=== PATIENT | female | born 1970 | race Caucasian/White ===

== ENCOUNTER → 2016-04-27 | Outpatient (CLI) | payer OTHER ==
[~2016-04-27] MED LIST: AUGMENTIN 875875 MG PO; FLEXERIL10 MG PO; LAMICTAL PO; LAMICTAL100 MG PO; MOTRIN800 MG PO; REMERON PO; VALIUM PO; VALIUM10 MG; XANAX PO; XANAX XR1 MG PO; XANAX0.25 MG PO; XANAX1 MG PO
== END | disposition home or self-care (01) ==
LOC: RAD 11:39
DX: R06.02 Shortness of breath (principal); R05 Cough; R09.89 Other specified symptoms and signs involving the circulatory and respiratory systems

== ENCOUNTER 2017-05-31 08:01 | Emergency (ER) | payer OTHER ==
[~2017-05-31] VITALS: Ht 170.1 cm; Wt 77.1 kg
[2017-05-31] MEDS ORDERED: ATORVASTATIN CA20 M1 PO (08:08)
[2017-05-31] MEDS ORDERED: OMEPRAZOLE D/R20 MG PO (08:09)
[2017-05-31 08:45] LABS: BILIRUBIN NEGATIVE (NEGATIVE); BLOOD TRACE-INTACT (NEGATIVE); CLARITY CLEAR (CLEAR); COLOR YELLOW (YELLOW); GLUCOSE NEGATIVE (NEGATIVE); KETONE NEGATIVE (NEGATIVE); LEUKO ESTERASE 1+ (NEGATIVE); NITRITE POSITIVE (NEGATIVE); SPECIFIC GRAVITY <= 1.005 (1.005-1.030); UROBILINOGEN 0.2 E.U./dl (0.2-1.0)
[2017-05-31 08:49] LABS: BASO % 0.8 % (0.0-1.0); EOS # 0.1 10*3/uL (0.0-0.4); EOS % 1.4 % (1.0-4.0); HEMATOCRIT 42.9 % (37.0-47.0); HEMOGLOBIN 14.4 g/dl (12.0-16.0); LYMPH # 1.3 10*3/uL (1.3-4.4); MEAN CELL VOLUME 95.3 fl (81.0-99.0); MEAN CORPUSCULAR HGB CONC 33.6 g/dl (33.0-37.0); MEAN PLATELET VOLUME 8.9 fl (9.6-12.3); MONO # 0.5 10*3/uL (0.1-1.0); MONO % 9.7 % (3.0-9.0); NEUT # 3.1 10*3/uL (2.3-7.9); NEUT % 61.7 % (47.0-73.0); PLATELET COUNT AUTOMATED 170 10*3/uL (130-400); RED CELL DISTRI WIDTH 13.4 % (0-14.5)
[2017-05-31 08:53] LABS: BACTERIA 3+
[2017-05-31 08:58] LABS: ACT PARTIAL THROMBO TIME 27.2 SECONDS (20.8-31.5); INTERNATIONAL NORM RATIO 0.9 (2.0-3.5)
[2017-05-31 09:18] LABS: ALBUMIN 3.4 gm/dl (3.1-4.5); ALKALINE PHOSPHATASE 135 U/L (45-117); BUN 5 mg/dl (7-24); CHLORIDE 105 mmol/L (98-107); CREATININE 0.79 mg/dL (0.55-1.02); POTASSIUM 4.1 mmol/L (3.5-5.1); SGOT/AST 47 IU/L (3-35); SGPT/ALT 47 U/L (12-78); SODIUM 138 mmol/L (136-145); TOTAL PROTEIN 7.4 gm/dL (6.4-8.2)
[2017-05-31] MEDS ORDERED: CYCLOBENZAPRINE5 M3 PO (10:14)
== END 2017-05-31 10:36 | disposition home or self-care (01) ==
LOC: ED 08:01
PROVIDERS: Emergency Medicine
DX: M54.5 Low back pain (principal); F17.200 Nicotine dependence, unspecified, uncomplicated; Z98.51 Tubal ligation status; Z79.899 Other long term (current) drug therapy

== ENCOUNTER 2017-06-13 19:46 | Emergency (ER) | payer OTHER ==
[~2017-06-13] VITALS: Ht 170.1 cm; Wt 66.2 kg
[~2017-06-13 19:46] MED LIST changes: +ATORVASTATIN CA20 M1 PO; +CYCLOBENZAPRINE5 M3 PO; +OMEPRAZOLE D/R20 MG PO
[2017-06-13] MEDS ORDERED: CYCLOBENZAPRINE5 M3 PO (21:42)
== END 2017-06-13 21:52 | disposition home or self-care (01) ==
LOC: ED 19:46
DX: M54.5 Low back pain (principal); F17.200 Nicotine dependence, unspecified, uncomplicated; Z98.51 Tubal ligation status; Z79.899 Other long term (current) drug therapy; W19.XXXA Unspecified fall, initial encounter; Y93.89 Activity, other specified; Y92.89 Other specified places as the place of occurrence of the external cause; Y99.9 Unspecified external cause status

== ENCOUNTER → 2017-06-27 | Outpatient (CLI) | payer OTHER | END | disposition home or self-care (01) | LOC: US 05-28 10:00 | DX: K76.0 Fatty (change of) liver, not elsewhere classified (principal) ==

== ENCOUNTER → 2017-11-07 | Outpatient (CLI) | payer OTHER ==
[2017-11-07 09:28] LABS: BASO # 0.1 10*3/uL (0.0-0.1); BASO % 0.7 % (0.0-1.0); EOS # 0.1 10*3/uL (0.0-0.4); EOS % 1.1 % (1.0-4.0); HEMATOCRIT 47.5 % (37.0-47.0); HEMOGLOBIN 16.1 g/dl (12.0-16.0); LYMPH % 22.5 % (27.0-41.0); MEAN CELL VOLUME 99.4 fl (81.0-99.0); MEAN CORPUSCULAR HGB 33.7 pg (27.0-31.0); MEAN CORPUSCULAR HGB CONC 33.9 g/dl (33.0-37.0); MEAN PLATELET VOLUME 9.5 fl (9.6-12.3); MONO # 0.8 10*3/uL (0.1-1.0); MONO % 9.3 % (3.0-9.0); NEUT # 5.8 10*3/uL (2.3-7.9); NEUT % 66.1 % (47.0-73.0); PLATELET COUNT AUTOMATED 180 10*3/uL (130-400); RED BLOOD COUNT 4.78 10*6/uL (4.10-5.10); WHITE BLOOD COUNT 8.8 10*3/uL (4.8-10.8)
== END | disposition home or self-care (01) ==
LOC: LAB 08:25
PROVIDERS: Physician Assistant
DX: Z51.81 Encounter for therapeutic drug level monitoring (principal); Z79.899 Other long term (current) drug therapy

== ENCOUNTER 2017-12-26 11:13 | Emergency (ER) | payer OTHER ==
[~2017-12-26] VITALS: Ht 167.6 cm; Wt 61.2 kg
[2017-12-26 11:50] LABS: BASO # 0.1 10*3/uL (0.0-0.1); BASO % 0.7 % (0.0-1.0); EOS # 0.3 10*3/uL (0.0-0.4); EOS % 2.2 % (1.0-4.0); HEMATOCRIT 47.3 % (37.0-47.0); HEMOGLOBIN 15.9 g/dl (12.0-16.0); LYMPH # 2.4 10*3/uL (1.3-4.4); LYMPH % 18.4 % (27.0-41.0); MEAN CELL VOLUME 101.3 fl (81.0-99.0); MEAN CORPUSCULAR HGB CONC 33.6 g/dl (33.0-37.0); MEAN PLATELET VOLUME 9.8 fl (9.6-12.3); MONO # 1.1 10*3/uL (0.1-1.0); MONO % 8.8 % (3.0-9.0); NEUT # 9.1 10*3/uL (2.3-7.9); NEUT % 69.5 % (47.0-73.0); PLATELET COUNT AUTOMATED 557 10*3/uL (130-400); RED BLOOD COUNT 4.67 10*6/uL (4.10-5.10); RED CELL DISTRI WIDTH 13.5 % (0-14.5)
[2017-12-26 12:17] LABS: ALBUMIN 2.9 gm/dl (3.1-4.5); ALKALINE PHOSPHATASE 166 U/L (45-117); BUN 2 mg/dl (7-24); CHLORIDE 104 mmol/L (98-107); CREATININE 0.69 mg/dL (0.55-1.02); LIPASE 166 U/L (73-393); POTASSIUM 4.5 mmol/L (3.5-5.1); SGOT/AST 46 IU/L (3-35); SGPT/ALT 31 U/L (12-78); SODIUM 138 mmol/L (136-145)
[2017-12-26 12:55] LABS: BILIRUBIN NEGATIVE (NEGATIVE); BLOOD NEGATIVE (NEGATIVE); CLARITY SL CLOUDY (CLEAR); COLOR YELLOW (YELLOW); GLUCOSE NEGATIVE (NEGATIVE); KETONE NEGATIVE (NEGATIVE); LEUKO ESTERASE 2+ (NEGATIVE); NITRITE POSITIVE (NEGATIVE); PH 7.5 (5.0-9.0); SPECIFIC GRAVITY <= 1.005 (1.005-1.030); UROBILINOGEN 0.2 E.U./dl (0.2-1.0)
[2017-12-26 13:14] LABS: WBC 21-30 wbc/hpf (0-5)
[2017-12-26 13:15] LABS: BACTERIA 3+
[2017-12-26] MEDS ORDERED: PYRIDIUM200 M1 PO (13:31)
[2017-12-26] MEDS ORDERED: ZOFRAN4 MG PO (13:31)
[2017-12-26] MEDS ORDERED: MACROBID100 M1 PO (13:31)
== END 2017-12-26 13:34 | disposition home or self-care (01) ==
LOC: ED 11:13
PROVIDERS: Nurse Practitioner Family
DX: N39.0 Urinary tract infection, site not specified (principal); R03.0 Elevated blood-pressure reading, without diagnosis of hypertension; F17.200 Nicotine dependence, unspecified, uncomplicated; Z79.899 Other long term (current) drug therapy; Z98.51 Tubal ligation status

== ENCOUNTER → 2018-11-30 | Outpatient (CLI) | payer OTHER ==
[~2018-11-30] MED LIST changes: +MACROBID100 M1 PO; +PYRIDIUM200 M1 PO; +ZOFRAN4 MG PO
== END | disposition home or self-care (01) ==
LOC: RAD 08:51
DX: M47.816 Spondylosis without myelopathy or radiculopathy, lumbar region (principal)

== ENCOUNTER → 2020-03-07 | Outpatient (CLI) | payer OTHER | END | disposition home or self-care (01) | LOC: COVID19 13:35 | PROVIDERS: ATTEND Physician Assistant | DX: Z20.828 Contact with and (suspected) exposure to other viral communicable diseases (principal) ==

== ENCOUNTER 2020-08-21 06:55 | Emergency (ER) | payer OTHER ==
[~2020-08-21] VITALS: Ht 167.6 cm; Wt 63.5 kg
[2020-08-21 09:32] LABS: BASO # 0.1 10*3/uL (0.0-0.1); BASO % 0.9 % (0.0-1.0); EOS # 0.1 10*3/uL (0.0-0.4); EOS % 2.1 % (1.0-4.0); HEMATOCRIT 48.3 % (37.0-47.0); LYMPH # 3.6 10*3/uL (1.3-4.4); LYMPH % 53.3 % (27.0-41.0); MEAN CELL VOLUME 94.2 fl (81.0-99.0); MEAN CORPUSCULAR HGB 32.2 pg (27.0-31.0); MEAN CORPUSCULAR HGB CONC 34.2 g/dl (33.0-37.0); MEAN PLATELET VOLUME 8.7 fl (9.6-12.3); MONO # 0.6 10*3/uL (0.1-1.0); MONO % 8.8 % (3.0-9.0); NEUT # 2.3 10*3/uL (2.3-7.9); NEUT % 34.5 % (47.0-73.0); PLATELET COUNT AUTOMATED 281 10*3/uL (130-400); RED BLOOD COUNT 5.13 10*6/uL (4.10-5.10); RED CELL DISTRI WIDTH 12.6 % (0-14.5); WHITE BLOOD COUNT 6.7 10*3/uL (4.8-10.8)
[2020-08-21 09:43] LABS: ACT PARTIAL THROMBO TIME 28.9 SECONDS (20.0-32.1)
[2020-08-21 09:46] LABS: ALBUMIN 3.5 gm/dl (3.1-4.5); ALKALINE PHOSPHATASE 129 U/L (45-117); BUN 6 mg/dl (7-24); CHLORIDE 108 mmol/L (98-107); CREATININE 0.71 mg/dL (0.55-1.02); POTASSIUM 3.8 mmol/L (3.5-5.1); SGOT/AST 21 IU/L (3-35); SGPT/ALT 26 U/L (12-78); SODIUM 139 mmol/L (136-145); TOTAL PROTEIN 7.9 gm/dL (6.4-8.2)
[2020-08-21] MEDS ORDERED: PREDNISONE10 MG PO (10:07)
[2020-08-21] MEDS ORDERED: DOXYCYCLINE100 M3 PO (10:07)
== END 2020-08-21 10:23 | disposition home or self-care (01) ==
LOC: ED 06:55
PROVIDERS: Family Medicine
DX: J40 Bronchitis, not specified as acute or chronic (principal); Z88.8 Allergy status to other drugs, medicaments and biological substances; Z79.899 Other long term (current) drug therapy; Z98.51 Tubal ligation status

== ENCOUNTER 2020-10-23 18:28 | Emergency (ER) | payer OTHER ==
[~2020-10-23 18:28] MED LIST changes: +DOXYCYCLINE100 M3 PO; +PREDNISONE10 MG PO
== END 2020-10-23 18:57 | disposition left against medical advice (07) ==
LOC: ED 18:28
DX: R10.9 Unspecified abdominal pain (principal); Z53.21 Procedure and treatment not carried out due to patient leaving prior to being seen by health care provider

== ENCOUNTER 2020-10-29 01:46 | Emergency (ER) | payer OTHER ==
[~2020-10-29 01:46] MED LIST changes: +CIPRO500 MG PO
== END 2020-10-29 02:30 | disposition left against medical advice (07) ==
LOC: ED 01:46
DX: R07.81 Pleurodynia (principal); Z53.21 Procedure and treatment not carried out due to patient leaving prior to being seen by health care provider

== ENCOUNTER 2020-11-13 12:48 | Inpatient (IN) | payer OTHER ==
[~2020-11-13] VITALS: Ht 167.6 cm; Wt 68.9 kg
[2020-11-13 12:57] VITALS: BP 161/86
[2020-11-13 13:05] LABS: BASO % 0.5 % (0.0-1.0); EOS # 0.1 10*3/uL (0.0-0.4); EOS % 0.9 % (1.0-4.0); HEMATOCRIT 47.4 % (37.0-47.0); LYMPH # 3.7 10*3/uL (1.3-4.4); LYMPH % 55.6 % (27.0-41.0); MEAN CELL VOLUME 93.1 fl (81.0-99.0); MEAN CORPUSCULAR HGB 31.6 pg (27.0-31.0); MEAN PLATELET VOLUME 9.3 fl (9.6-12.3); MONO # 0.6 10*3/uL (0.1-1.0); MONO % 9.2 % (3.0-9.0); NEUT # 2.2 10*3/uL (2.3-7.9); NEUT % 33.5 % (47.0-73.0); PLATELET COUNT AUTOMATED 166 10*3/uL (130-400); RED BLOOD COUNT 5.09 10*6/uL (4.10-5.10); WHITE BLOOD COUNT 6.6 10*3/uL (4.8-10.8)
[2020-11-13 13:23] LABS: LIPASE 168 U/L (73-393)
[2020-11-13 13:24] LABS: ALBUMIN 3.6 gm/dl (3.1-4.5); ALKALINE PHOSPHATASE 115 U/L (45-117); BUN 5 mg/dl (7-24); CHLORIDE 101 mmol/L (98-107); CREATININE 0.61 mg/dL (0.55-1.02); POTASSIUM 3.9 mmol/L (3.5-5.1); SGOT/AST 110 IU/L (3-35); SGPT/ALT 71 U/L (12-78); SODIUM 131 mmol/L (136-145); TOTAL PROTEIN 7.6 gm/dL (6.4-8.2)
[2020-11-13 13:31] LABS: TROPONIN I < 0.015 ng/ml (<0.045)
[2020-11-13 13:35] VITALS: BP 118/82
[2020-11-13 16:15] VITALS: BP 129/82
[2020-11-13 17:40] VITALS: BP 145/60
[2020-11-13] MEDS ORDERED: HYDROCORTISONE30 GM T (17:53)
[2020-11-13] MEDS ORDERED: METHYLPRED-DP4 MG PO (17:54)
[2020-11-13 18:40] VITALS: BP 145/60
[2020-11-13 20:00] VITALS: BP 128/61
[2020-11-14 00:20] VITALS: BP 119/93
[2020-11-14 06:16] LABS: ALBUMIN 2.9 gm/dl (3.1-4.5); ALKALINE PHOSPHATASE 107 U/L (45-117); BUN 6 mg/dl (7-24); CHLORIDE 108 mmol/L (98-107); CHOLESTEROL 174 mg/dL (<200); LDL CHOLESTEROL 88 mg/dL (9-159); POTASSIUM 3.9 mmol/L (3.5-5.1); SGOT/AST 64 IU/L (3-35); SGPT/ALT 53 U/L (12-78); SODIUM 136 mmol/L (136-145); TOTAL PROTEIN 6.1 gm/dL (6.4-8.2); TRIGLYCERIDES 100 mg/dl (<150)
[2020-11-14 06:25] LABS: BASO % 0.6 % (0.0-1.0); EOS # 0.1 10*3/uL (0.0-0.4); EOS % 1.1 % (1.0-4.0); HEMATOCRIT 42.6 % (37.0-47.0); LYMPH # 2.5 10*3/uL (1.3-4.4); LYMPH % 46.8 % (27.0-41.0); MEAN CELL VOLUME 94.9 fl (81.0-99.0); MEAN CORPUSCULAR HGB 32.1 pg (27.0-31.0); MEAN CORPUSCULAR HGB CONC 33.8 g/dl (33.0-37.0); MEAN PLATELET VOLUME 10.1 fl (9.6-12.3); MONO # 0.4 10*3/uL (0.1-1.0); MONO % 8.2 % (3.0-9.0); NEUT # 2.3 10*3/uL (2.3-7.9); NEUT % 43.1 % (47.0-73.0); PLATELET COUNT AUTOMATED 139 10*3/uL (130-400); RED BLOOD COUNT 4.49 10*6/uL (4.10-5.10); RED CELL DISTRI WIDTH 13.2 % (0-14.5); WHITE BLOOD COUNT 5.4 10*3/uL (4.8-10.8)
[2020-11-14 07:02] LABS: INTERNATIONAL NORM RATIO 1.1 (2.0-3.5)
[2020-11-14 08:00] VITALS: BP 148/64
[2020-11-14 09:20] LABS: VITAMIN D, 25-HYDROXY 24.3 ng/mL (30-100)
[2020-11-14 12:00] VITALS: BP 125/80
[2020-11-14 16:00] VITALS: BP 120/72
[2020-11-14 20:00] VITALS: BP 128/67
[2020-11-15] VITALS: BP 133/102
[2020-11-15 05:51] LABS: BUN 4 mg/dl (7-24); CHLORIDE 109 mmol/L (98-107); CREATININE 0.56 mg/dL (0.55-1.02); POTASSIUM 3.6 mmol/L (3.5-5.1); SODIUM 139 mmol/L (136-145)
[2020-11-15 06:16] LABS: BASO % 0.4 % (0.0-1.0); EOS # 0.1 10*3/uL (0.0-0.4); EOS % 2.4 % (1.0-4.0); HEMATOCRIT 44.2 % (37.0-47.0); LYMPH # 2.5 10*3/uL (1.3-4.4); LYMPH % 50.6 % (27.0-41.0); MEAN CELL VOLUME 94.4 fl (81.0-99.0); MEAN CORPUSCULAR HGB 31.6 pg (27.0-31.0); MEAN CORPUSCULAR HGB CONC 33.5 g/dl (33.0-37.0); MEAN PLATELET VOLUME 10.3 fl (9.6-12.3); MONO # 0.4 10*3/uL (0.1-1.0); MONO % 8.3 % (3.0-9.0); NEUT # 1.9 10*3/uL (2.3-7.9); NEUT % 38.1 % (47.0-73.0); PLATELET COUNT AUTOMATED 135 10*3/uL (130-400); RED BLOOD COUNT 4.68 10*6/uL (4.10-5.10); RED CELL DISTRI WIDTH 12.8 % (0-14.5); WHITE BLOOD COUNT 4.9 10*3/uL (4.8-10.8)
[2020-11-15 08:00] VITALS: BP 154/88
[2020-11-15 11:20] VITALS: BP 117/70
[2020-11-15 11:32] VITALS: BP 116/71
[2020-11-15 11:46] VITALS: BP 126/63
[2020-11-15 12:11] VITALS: BP 117/70
== END 2020-11-15 13:20 | disposition left against medical advice (07) | DRG 241 ==
LOC: ED 12:48 → EDHOLD 16:07 → 4E 16:07
PROVIDERS: Emergency Medicine; Social Worker Clinical; Student in an Organized Health Care Education/Training Program; ADMIT Student in an Organized Health Care Education/Training Program; ATTEND Student in an Organized Health Care Education/Training Program
PROC: 09JJ8ZZ Inspection of Left Ear, Via Natural or Artificial Opening Endoscopic (ICD-10-PCS; 2020-11-14)
PROC: 09JH8ZZ Inspection of Right Ear, Via Natural or Artificial Opening Endoscopic (ICD-10-PCS; 2020-11-14)
PROC: 0DB78ZX Excision of Stomach, Pylorus, Via Natural or Artificial Opening Endoscopic, Diagnostic (ICD-10-PCS; principal; 2020-11-15)
DX: K29.20 Alcoholic gastritis without bleeding (principal); F10.139 Alcohol abuse with withdrawal, unspecified; D70.9 Neutropenia, unspecified; E87.1 Hypo-osmolality and hyponatremia; D75.1 Secondary polycythemia; F41.0 Panic disorder [episodic paroxysmal anxiety]; Z53.29 Procedure and treatment not carried out because of patient's decision for other reasons; K29.80 Duodenitis without bleeding; E83.41 Hypermagnesemia; F32.9 Major depressive disorder, single episode, unspecified; F41.9 Anxiety disorder, unspecified; R53.1 Weakness; R20.0 Anesthesia of skin; J44.9 Chronic obstructive pulmonary disease, unspecified; F17.210 Nicotine dependence, cigarettes, uncomplicated; Y90.8 Blood alcohol level of 240 mg/100 ml or more; S00.411A Abrasion of right ear, initial encounter; S00.412A Abrasion of left ear, initial encounter; X58.XXXA Exposure to other specified factors, initial encounter; Y93.89 Activity, other specified; Y92.89 Other specified places as the place of occurrence of the external cause; Y99.8 Other external cause status; Z71.6 Tobacco abuse counseling; Z88.1 Allergy status to other antibiotic agents; Z98.51 Tubal ligation status; Z80.42 Family history of malignant neoplasm of prostate; Z82.3 Family history of stroke; Z83.2 Family history of diseases of the blood and blood-forming organs and certain disorders involving the immune mechanism; Z86.711 Personal history of pulmonary embolism; Z86.73 Personal history of transient ischemic attack (TIA), and cerebral infarction without residual deficits; Z79.899 Other long term (current) drug therapy; Z79.52 Long term (current) use of systemic steroids

== ENCOUNTER 2020-12-22 | Inpatient (IN) | payer OTHER ==
[~2020-12-22] VITALS: Ht 167.6 cm; Wt 65.5 kg
[~2020-12-22] MED LIST changes: +HYDROCORTISONE30 GM T; +METHYLPRED-DP4 MG PO
[2020-12-22 00:03] VITALS: BP 136/79
[2020-12-22 00:14] LABS: BASO % 0.7 % (0.0-1.0); EOS % 0.6 % (1.0-4.0); HEMATOCRIT 43.9 % (37.0-47.0); LYMPH % 19.4 % (27.0-41.0); MEAN CELL VOLUME 92.8 fl (81.0-99.0); MEAN CORPUSCULAR HGB 32.6 pg (27.0-31.0); MEAN CORPUSCULAR HGB CONC 35.1 g/dl (33.0-37.0); MEAN PLATELET VOLUME 9.6 fl (9.6-12.3); MONO # 0.7 10*3/uL (0.1-1.0); MONO % 13.5 % (3.0-9.0); NEUT # 3.5 10*3/uL (2.3-7.9); NEUT % 65.4 % (47.0-73.0); PLATELET COUNT AUTOMATED 142 10*3/uL (130-400); RED BLOOD COUNT 4.73 10*6/uL (4.10-5.10); RED CELL DISTRI WIDTH 13.2 % (0-14.5); WHITE BLOOD COUNT 5.4 10*3/uL (4.8-10.8)
[2020-12-22 00:31] LABS: ALBUMIN 3.1 gm/dl (3.1-4.5); ALKALINE PHOSPHATASE 250 U/L (45-117); BUN 2 mg/dl (7-24); CHLORIDE 91 mmol/L (98-107); CREATININE 0.55 mg/dL (0.55-1.02); POTASSIUM 3.7 mmol/L (3.5-5.1); SGOT/AST 306 IU/L (3-35); SGPT/ALT 170 U/L (12-78); SODIUM 128 mmol/L (136-145); TOTAL PROTEIN 7.4 gm/dL (6.4-8.2)
[2020-12-22 00:32] LABS: TROPONIN I < 0.015 ng/ml (<0.045)
[2020-12-22 03:17] LABS: BILIRUBIN Negative (Negative); BLOOD Negative (Negative); CLARITY Clear (Clear); COLOR Yellow (Yellow); GLUCOSE Negative (Negative); KETONE Negative (Negative); LEUKO ESTERASE 1+ (Negative); NITRITE Negative (Negative); SPECIFIC GRAVITY <= 1.005 (1.001-1.030); UROBILINOGEN 0.2 E.U./dl (0.0-1.0)
[2020-12-22 03:27] LABS: BACTERIA 2+; WBC 21-30 wbc/hpf (0-5)
[2020-12-22 05:39] LABS: URINE AMPHETAMINES > 1000 (1000ng/ml); URINE BARBITURATES < 200 (200ng/ml); URINE BENZODIAZEPINES < 200 (200ng/ml); URINE CANNABINOIDS (THC) < 50 (50ng/ml); URINE COCAINE < 300 (300ng/ml); URINE METHADONE < 300 (300ng/ml); URINE OPIATES < 300 (300ng/ml)
[2020-12-22 06:00] LABS: URINE PHENCYCLIDINE < 25 (25ng/ml)
[2020-12-22 06:15] LABS: BASO % 0.7 % (0.0-1.0); EOS % 0.7 % (1.0-4.0); HEMATOCRIT 46.3 % (37.0-47.0); LYMPH # 1.3 10*3/uL (1.3-4.4); MEAN CELL VOLUME 93.3 fl (81.0-99.0); MEAN CORPUSCULAR HGB 32.9 pg (27.0-31.0); MEAN CORPUSCULAR HGB CONC 35.2 g/dl (33.0-37.0); MEAN PLATELET VOLUME 9.7 fl (9.6-12.3); MONO # 0.7 10*3/uL (0.1-1.0); MONO % 11.7 % (3.0-9.0); NEUT % 65.7 % (47.0-73.0); PLATELET COUNT AUTOMATED 161 10*3/uL (130-400); RED BLOOD COUNT 4.96 10*6/uL (4.10-5.10); RED CELL DISTRI WIDTH 13.3 % (0-14.5); WHITE BLOOD COUNT 6.1 10*3/uL (4.8-10.8)
[2020-12-22 06:31] LABS: ALBUMIN 3.2 gm/dl (3.1-4.5); BUN 2 mg/dl (7-24); CHLORIDE 103 mmol/L (98-107); POTASSIUM 3.8 mmol/L (3.5-5.1); SGPT/ALT 171 U/L (12-78); SODIUM 139 mmol/L (136-145)
[2020-12-22 06:38] VITALS: BP 134/78
[2020-12-22 06:43] LABS: ALKALINE PHOSPHATASE 260 U/L (45-117); CREATININE 0.65 mg/dL (0.55-1.02); SGOT/AST 305 IU/L (3-35)
[2020-12-22 07:34] LABS: ACT PARTIAL THROMBO TIME 27.6 SECONDS (20.0-32.1)
[2020-12-22 08:44] VITALS: BP 120/64
[2020-12-22 16:25] VITALS: BP 115/70
[2020-12-22 16:58] VITALS: BP 119/79
[2020-12-22 20:00] VITALS: BP 105/68
[2020-12-23 00:03] VITALS: BP 109/74; BP 109/747
[2020-12-23 06:18] LABS: BASO # 0.1 10*3/uL (0.0-0.1); EOS # 0.2 10*3/uL (0.0-0.4); EOS % 2.9 % (1.0-4.0); HEMATOCRIT 42.6 % (37.0-47.0); LYMPH # 1.6 10*3/uL (1.3-4.4); LYMPH % 30.2 % (27.0-41.0); MEAN CORPUSCULAR HGB 32.4 pg (27.0-31.0); MEAN CORPUSCULAR HGB CONC 33.3 g/dl (33.0-37.0); MEAN PLATELET VOLUME 10.3 fl (9.6-12.3); MONO # 0.6 10*3/uL (0.1-1.0); MONO % 10.6 % (3.0-9.0); NEUT # 2.9 10*3/uL (2.3-7.9); NEUT % 55.1 % (47.0-73.0); PLATELET COUNT AUTOMATED 137 10*3/uL (130-400); RED BLOOD COUNT 4.38 10*6/uL (4.10-5.10); RED CELL DISTRI WIDTH 13.7 % (0-14.5); WHITE BLOOD COUNT 5.3 10*3/uL (4.8-10.8)
[2020-12-23 06:27] LABS: MEAN CELL VOLUME 97.3 fl (81.0-99.0)
[2020-12-23 06:51] LABS: ALBUMIN 2.4 gm/dl (3.1-4.5); ALKALINE PHOSPHATASE 194 U/L (45-117); BUN 4 mg/dl (7-24); CHLORIDE 104 mmol/L (98-107); CREATININE 0.68 mg/dL (0.55-1.02); LIPASE 84 U/L (73-393); POTASSIUM 3.9 mmol/L (3.5-5.1); SGOT/AST 215 IU/L (3-35); SGPT/ALT 126 U/L (12-78); SODIUM 137 mmol/L (136-145); TOTAL PROTEIN 6.5 gm/dL (6.4-8.2)
[2020-12-23 08:00] VITALS: BP 109/71
[2020-12-23 12:00] VITALS: BP 112/69
[2020-12-23 16:00] VITALS: BP 117/79
[2020-12-23 20:00] VITALS: BP 125/79
[2020-12-24] VITALS: BP 127/78
[2020-12-24 06:30] LABS: BASO % 0.9 % (0.0-1.0); EOS # 0.1 10*3/uL (0.0-0.4); EOS % 2.1 % (1.0-4.0); HEMATOCRIT 38.9 % (37.0-47.0); LYMPH # 1.7 10*3/uL (1.3-4.4); LYMPH % 39.9 % (27.0-41.0); MEAN CORPUSCULAR HGB CONC 33.7 g/dl (33.0-37.0); MEAN PLATELET VOLUME 10.6 fl (9.6-12.3); MONO # 0.5 10*3/uL (0.1-1.0); MONO % 10.4 % (3.0-9.0); NEUT % 46.5 % (47.0-73.0); PLATELET COUNT AUTOMATED 141 10*3/uL (130-400); RED BLOOD COUNT 3.97 10*6/uL (4.10-5.10); RED CELL DISTRI WIDTH 13.4 % (0-14.5); WHITE BLOOD COUNT 4.3 10*3/uL (4.8-10.8)
[2020-12-24 06:52] LABS: ALBUMIN 2.3 gm/dl (3.1-4.5); ALKALINE PHOSPHATASE 175 U/L (45-117); BUN 3 mg/dl (7-24); CHLORIDE 103 mmol/L (98-107); CREATININE 0.56 mg/dL (0.55-1.02); SGOT/AST 169 IU/L (3-35); SGPT/ALT 113 U/L (12-78); SODIUM 137 mmol/L (136-145); TOTAL PROTEIN 6.1 gm/dL (6.4-8.2)
[2020-12-24 07:45] VITALS: BP 134/80
[2020-12-24] MEDS ORDERED: PROTONIX40 MG PO (10:19)
[2020-12-24] MEDS ORDERED: CEFUROXIME AXE250 MG PO (10:19)
[2020-12-24] MEDS ORDERED: VITAMIN B-1100 M1 PO (10:22)
[2020-12-24] MEDS ORDERED: NATURE'S BLEND F1 MG PO (10:22)
== END 2020-12-24 11:33 | disposition home health service (06) | DRG 241 ==
LOC: ED → 5E 05:37 → EDHOLD 05:37 → 5E 14:36
PROVIDERS: Emergency Medicine; Hospitalist; Internal Medicine; ADMIT Internal Medicine; ATTEND Internal Medicine
DX: K29.70 Gastritis, unspecified, without bleeding (principal); J18.9 Pneumonia, unspecified organism; E87.1 Hypo-osmolality and hyponatremia; F32.9 Major depressive disorder, single episode, unspecified; F15.10 Other stimulant abuse, uncomplicated; F41.0 Panic disorder [episodic paroxysmal anxiety]; R74.01 Elevation of levels of liver transaminase levels; R73.9 Hyperglycemia, unspecified; J44.0 Chronic obstructive pulmonary disease with (acute) lower respiratory infection; K21.9 Gastro-esophageal reflux disease without esophagitis; F10.139 Alcohol abuse with withdrawal, unspecified; Y90.9 Presence of alcohol in blood, level not specified; Z79.899 Other long term (current) drug therapy; Z82.3 Family history of stroke; Z80.42 Family history of malignant neoplasm of prostate

== ENCOUNTER 2023-05-13 05:06 | Emergency (ER) | payer MEDICARE, MEDICAID ==
[~2023-05-13] VITALS: Ht 165.1 cm; Wt 64.4 kg
[~2023-05-13 05:06] MED LIST changes: +CEFUROXIME AXE250 MG PO; +NATURE'S BLEND F1 MG PO; +PROTONIX40 MG PO; +VITAMIN B-1100 M1 PO
[2023-05-13 06:49] LABS: BASO % 0.4 % (0.0-1.0); EOS % 0.4 % (1.0-4.0); LYMPH # 2.1 10*3/uL (1.3-4.4); MEAN CELL VOLUME 96.8 fl (81.0-99.0); MEAN CORPUSCULAR HGB 31.5 pg (27.0-31.0); MEAN CORPUSCULAR HGB CONC 32.6 g/dl (33.0-37.0); MONO # 0.4 10*3/uL (0.1-1.0); MONO % 8.9 % (3.0-9.0); NEUT # 2.1 10*3/uL (2.3-7.9); NEUT % 44.5 % (47.0-73.0); PLATELET COUNT AUTOMATED 223 10*3/uL (130-400); RED BLOOD COUNT 4.03 10*6/uL (4.10-5.10); RED CELL DISTRI WIDTH 13.4 % (0-14.5); WHITE BLOOD COUNT 4.7 10*3/uL (4.8-10.8)
[2023-05-13 07:06] LABS: BILIRUBIN Negative (Negative); BLOOD Negative (Negative); CLARITY Clear (Clear); COLOR Yellow (Yellow); GLUCOSE Negative (Negative); KETONE Negative (Negative); LEUKO ESTERASE Negative (Negative); NITRITE Negative (Negative); PH 5.5 (4.5-8.0); SPECIFIC GRAVITY <= 1.005 (1.001-1.030); UROBILINOGEN 0.2 E.U./dl (0.0-1.0)
[2023-05-13 07:11] LABS: ALKALINE PHOSPHATASE 216 U/L (46-116); BUN < 5 mg/dl (9-23); CHLORIDE 101 mmol/L (98-107); POTASSIUM 3.3 mmol/L (3.4-5.1); SGPT/ALT 21 U/L (5-49)
[2023-05-13 07:14] LABS: BACTERIA TRACE; WBC 0-2 wbc/hpf (0-5)
[2023-05-13 07:15] LABS: EPITHELIAL CELLS 0-2
[2023-05-13] MEDS ORDERED: ONDANSETRON4 MG SL (09:57)
== END 2023-05-13 10:01 | disposition home or self-care (01) ==
LOC: ED 05:06
PROVIDERS: Emergency Medicine
DX: K52.9 Noninfective gastroenteritis and colitis, unspecified (principal); Z20.822 Contact with and (suspected) exposure to COVID-19; R11.2 Nausea with vomiting, unspecified; R51.9 Headache, unspecified; E87.1 Hypo-osmolality and hyponatremia; K21.9 Gastro-esophageal reflux disease without esophagitis; J44.9 Chronic obstructive pulmonary disease, unspecified; F41.9 Anxiety disorder, unspecified; R73.9 Hyperglycemia, unspecified; F31.9 Bipolar disorder, unspecified; F15.10 Other stimulant abuse, uncomplicated; Z88.8 Allergy status to other drugs, medicaments and biological substances; F10.10 Alcohol abuse, uncomplicated; F17.200 Nicotine dependence, unspecified, uncomplicated; Z98.51 Tubal ligation status; Z98.890 Other specified postprocedural states

== ENCOUNTER 2023-05-21 07:38 | Emergency (ER) | payer MEDICARE, MEDICAID ==
[~2023-05-21] VITALS: Ht 167.6 cm; Wt 71.7 kg
[~2023-05-21 07:38] MED LIST changes: +ONDANSETRON4 MG SL
== END 2023-05-21 13:46 | disposition left against medical advice (07) ==
LOC: ED 07:38
DX: R69 Illness, unspecified (principal); Z88.8 Allergy status to other drugs, medicaments and biological substances; Z53.21 Procedure and treatment not carried out due to patient leaving prior to being seen by health care provider

== ENCOUNTER 2023-07-10 12:38 | Emergency (ER) | payer MEDICARE ==
[~2023-07-10] VITALS: Ht 157.4 cm; Wt 68.0 kg
[2023-07-10 13:07] LABS: BASO % 0.1 % (0.0-1.0); EOS % 0.4 % (1.0-4.0); HEMATOCRIT 36.4 % (37.0-47.0); LYMPH % 10.7 % (27.0-41.0); MEAN CELL VOLUME 98.4 fl (81.0-99.0); MEAN CORPUSCULAR HGB 34.1 pg (27.0-31.0); MEAN CORPUSCULAR HGB CONC 34.6 g/dl (33.0-37.0); MONO # 0.6 10*3/uL (0.1-1.0); MONO % 6.3 % (3.0-9.0); NEUT # 7.3 10*3/uL (2.3-7.9); NEUT % 81.6 % (47.0-73.0); PLATELET COUNT AUTOMATED 76 10*3/uL (130-400); RED CELL DISTRI WIDTH 15.5 % (0-14.5); WHITE BLOOD COUNT 8.9 10*3/uL (4.8-10.8)
[2023-07-10] MEDS ORDERED: Ventolin 02.5 MG/3 M INH (13:07)
[2023-07-10] MEDS ORDERED: AMITRIPTYLINE10 MG PO (13:08)
[2023-07-10] MEDS ORDERED: AMMONIUM LACTA227 GM T (13:09)
[2023-07-10] MEDS ORDERED: ASPIRIN ADULT L81 M1 PO (13:09)
[2023-07-10] MEDS ORDERED: Ondansetron Hydrochloride 4 MG/2 ML VIAL IV ONE ×2 (13:10→18:05)
[2023-07-10] MEDS ORDERED: BROMFED DM COU118 M2 PO (13:10)
[2023-07-10] MEDS ORDERED: CETIRIZINE10 MG PO (13:11)
[2023-07-10] MEDS ORDERED: CAPLYTA42 MG PO (13:11)
[2023-07-10] MEDS ORDERED: VOLTAREN ARTHRI20 GM T (13:12)
[2023-07-10] MEDS ORDERED: *Pletal50 MG PO (13:12)
[2023-07-10] MEDS ORDERED: ESZOPICLONE3 MG PO (13:13)
[2023-07-10] MEDS ORDERED: DOXEPIN HCL3 MG PO (13:13)
[2023-07-10] MEDS ORDERED: Ipratropium Brom3 ML INH (13:14)
[2023-07-10] MEDS ORDERED: Atrovent 0.03%30 ML NAS (13:15)
[2023-07-10] MEDS ORDERED: LAMICTAL150 MG PO (13:16)
[2023-07-10] MEDS ORDERED: methylPREDNISolone sod succ 125 MG VIAL IV ONE (13:20)
[2023-07-10] MEDS ORDERED: Albuterol Sulfate 2.5 MG/3 ML VIAL NEB ONE ×2 (13:20→16:00)
[2023-07-10 13:28] LABS: ALKALINE PHOSPHATASE 645 U/L (46-116); CHLORIDE 93 mmol/L (98-107); POTASSIUM 3.3 mmol/L (3.4-5.1); SGPT/ALT 128 U/L (5-49); TOTAL PROTEIN 6.4 gm/dL (6.0-8.0)
[2023-07-10 13:29] LABS: BUN < 5 mg/dl (9-23)
[2023-07-10] MEDS ORDERED: LITHIUM CARBON600 MG PO (13:29)
[2023-07-10] MEDS ORDERED: SINGULAIR10 M1 PO (13:31)
[2023-07-10] MEDS ORDERED: TOPROL XL25 MG PO (13:31)
[2023-07-10] MEDS ORDERED: Bactroban Oint22 GM T (13:32)
[2023-07-10] MEDS ORDERED: CORTISPORIN SOL10 M1 OT (13:33)
[2023-07-10] MEDS ORDERED: NYSTATIN15 GM T (13:33)
[2023-07-10] MEDS ORDERED: Ofloxacin 10 Ml10 M1 OT (13:34)
[2023-07-10] MEDS ORDERED: OXYCODON-ACETA1 EACH PO (13:35)
[2023-07-10] MEDS ORDERED: PYRIDIUM200 M1 PO (13:35)
[2023-07-10] MEDS ORDERED: RAYOS5 M1 PO (13:36)
[2023-07-10] MEDS ORDERED: ROPINIROLE HY0.25 MG PO (13:37)
[2023-07-10 13:38] LABS: BILIRUBIN Negative (Negative); BLOOD Negative (Negative); CLARITY Clear (Clear); COLOR Yellow (Yellow); GLUCOSE Negative (Negative); KETONE Negative (Negative); LEUKO ESTERASE Negative (Negative); NITRITE Negative (Negative); SPECIFIC GRAVITY <= 1.005 (1.001-1.030); UROBILINOGEN 0.2 E.U./dl (0.0-1.0)
[2023-07-10] MEDS ORDERED: IOHEXOL 300 MG/ML 100 ML VIAL IV ONE (13:45)
[2023-07-10 13:58] LABS: BACTERIA TRACE; MUCOUS TRACE; WBC 0-2 wbc/hpf (0-5)
[2023-07-10 15:12] LABS: ACT PARTIAL THROMBO TIME 27.7 SECONDS (20.0-32.1)
[2023-07-10] MEDS ORDERED: LEVOFLOXACIN 150 ML IV ONE (16:35)
[2023-07-10] MEDS ORDERED: SODIUM CHLORIDE 0.9% 1,000 ML IV SCH (20:15)
[2023-07-11 08:10] LABS: HBSAG Negative (Negative); HEP B CORE AB, IGM Negative (Negative); HEPATITIS C ANTIBODY Non Reactive (Non Reactive)
== END 2023-07-10 23:26 | disposition short-term general hospital (02) ==
LOC: ED 12:38
PROVIDERS: Nurse Practitioner
DX: F10.229 Alcohol dependence with intoxication, unspecified (principal); G93.41 Metabolic encephalopathy; J44.1 Chronic obstructive pulmonary disease with (acute) exacerbation; R74.01 Elevation of levels of liver transaminase levels; J44.9 Chronic obstructive pulmonary disease, unspecified; F41.9 Anxiety disorder, unspecified; F32.A Depression, unspecified; K21.9 Gastro-esophageal reflux disease without esophagitis; F17.200 Nicotine dependence, unspecified, uncomplicated; Z88.8 Allergy status to other drugs, medicaments and biological substances; Z79.82 Long term (current) use of aspirin; Z79.899 Other long term (current) drug therapy; Z79.2 Long term (current) use of antibiotics; Z98.51 Tubal ligation status; Z98.890 Other specified postprocedural states; Z86.73 Personal history of transient ischemic attack (TIA), and cerebral infarction without residual deficits; Z86.711 Personal history of pulmonary embolism; Y90.6 Blood alcohol level of 120-199 mg/100 ml

== ENCOUNTER 2023-08-15 15:44 | Emergency (ER) | payer MEDICARE ==
[~2023-08-15] VITALS: Ht 167.6 cm; Wt 59.9 kg
[~2023-08-15 15:44] MED LIST changes: +*Pletal50 MG PO; +AMITRIPTYLINE10 MG PO; +AMMONIUM LACTA227 GM T; +ASPIRIN ADULT L81 M1 PO; +Atrovent 0.03%30 ML NAS; +BROMFED DM COU118 M2 PO; +Bactroban Oint22 GM T; +CAPLYTA42 MG PO; +CETIRIZINE10 MG PO; +CORTISPORIN SOL10 M1 OT; +DOXEPIN HCL3 MG PO; +ESZOPICLONE3 MG PO; +Ipratropium Brom3 ML INH; +LAMICTAL150 MG PO; +LITHIUM CARBON600 MG PO; +NYSTATIN15 GM T; +OXYCODON-ACETA1 EACH PO; +Ofloxacin 10 Ml10 M1 OT; +RAYOS5 M1 PO; +ROPINIROLE HY0.25 MG PO; +SINGULAIR10 M1 PO; +TOPROL XL25 MG PO; +VOLTAREN ARTHRI20 GM T; +Ventolin 02.5 MG/3 M INH
[2023-08-15 16:07] LABS: BASO # 0.1 10*3/uL (0.0-0.1); BASO % 0.8 % (0.0-1.0); EOS # 0.2 10*3/uL (0.0-0.4); EOS % 2.7 % (1.0-4.0); HEMATOCRIT 43.6 % (37.0-47.0); LYMPH # 2.3 10*3/uL (1.3-4.4); LYMPH % 26.3 % (27.0-41.0); MEAN CELL VOLUME 100.9 fl (81.0-99.0); MEAN CORPUSCULAR HGB 32.6 pg (27.0-31.0); MEAN CORPUSCULAR HGB CONC 32.3 g/dl (33.0-37.0); MEAN PLATELET VOLUME 8.1 fl (9.6-12.3); MONO # 0.7 10*3/uL (0.1-1.0); MONO % 7.8 % (3.0-9.0); NEUT # 5.3 10*3/uL (2.3-7.9); PLATELET COUNT AUTOMATED 361 10*3/uL (130-400); RED BLOOD COUNT 4.32 10*6/uL (4.10-5.10); WHITE BLOOD COUNT 8.5 10*3/uL (4.8-10.8)
[2023-08-15 16:20] LABS: ACT PARTIAL THROMBO TIME 28.2 SECONDS (20.0-32.1)
[2023-08-15] MEDS ORDERED: XARELTO2.5 MG PO (16:23)
[2023-08-15 16:27] LABS: ALKALINE PHOSPHATASE 144 U/L (46-116); BUN < 5 mg/dl (9-23); CHLORIDE 103 mmol/L (98-107); ETHYL ALCOHOL < 3.0 mg/dl (<3); LIPASE 38 U/L (12-53); POTASSIUM 3.1 mmol/L (3.4-5.1); SGPT/ALT 9 U/L (5-49); TOTAL PROTEIN 7.2 gm/dL (6.0-8.0)
[2023-08-15 16:31] LABS: BILIRUBIN Negative (Negative); BLOOD Negative (Negative); CLARITY Clear (Clear); COLOR Yellow (Yellow); GLUCOSE Negative (Negative); KETONE Negative (Negative); LEUKO ESTERASE Negative (Negative); NITRITE Negative (Negative); PH 6.5 (4.5-8.0); SPECIFIC GRAVITY <= 1.005 (1.001-1.030); UROBILINOGEN 0.2 E.U./dl (0.0-1.0)
[2023-08-15] MEDS ORDERED: OXYCODONE-ACET1 EACH PO (16:34)
[2023-08-15 16:35] LABS: URINE AMPHETAMINES Negative (1000ng/ml); URINE BARBITURATES Negative (200ng/ml); URINE BENZODIAZEPINES Negative (200ng/ml); URINE CANNABINOIDS (THC) Negative (50ng/ml); URINE COCAINE Negative (300ng/ml); URINE METHADONE Negative (300ng/ml); URINE OPIATES Negative (300ng/ml); URINE PHENCYCLIDINE Negative (25ng/ml)
[2023-08-15] MEDS ORDERED: ONDANSETRON4 MG SL (16:35)
[2023-08-15] MEDS ORDERED: SINGULAIR10 M1 PO (16:36)
[2023-08-15] MEDS ORDERED: OMEPRAZOLE40 MG PO (16:36)
[2023-08-15] MEDS ORDERED: TOPROL XL25 MG PO (16:37)
[2023-08-15] MEDS ORDERED: LAMICTAL150 MG PO (16:38)
[2023-08-15] MEDS ORDERED: VISTARIL25 MG PO (16:41)
[2023-08-15] MEDS ORDERED: XANAX2 M1 PO (16:41)
[2023-08-15 16:43] LABS: EPITHELIAL CELLS 0-2; WBC 0-2 wbc/hpf (0-5)
[2023-08-15] MEDS ORDERED: FLONASE ALLERG9.9 ML NAS (16:43)
[2023-08-15] MEDS ORDERED: PREDNISONE50 MG PO (18:15)
[2023-08-15] MEDS ORDERED: MELOXICAM15 MG PO (18:15)
[2023-08-15] MEDS ORDERED: POTASSIUM CHLORIDE 20 MEQ TAB PO ONE (18:20)
== END 2023-08-15 18:34 | disposition home or self-care (01) ==
LOC: ED 15:44
PROVIDERS: Internal Medicine
DX: M94.0 Chondrocostal junction syndrome [Tietze] (principal); F31.9 Bipolar disorder, unspecified; E87.6 Hypokalemia; Z88.8 Allergy status to other drugs, medicaments and biological substances; Z98.51 Tubal ligation status; Z98.890 Other specified postprocedural states; F10.10 Alcohol abuse, uncomplicated; F17.200 Nicotine dependence, unspecified, uncomplicated

== ENCOUNTER 2023-08-27 15:08 | Emergency (ER) | payer MEDICARE ==
[~2023-08-27] VITALS: Wt 59.9 kg
[~2023-08-27 15:08] MED LIST changes: +FLONASE ALLERG9.9 ML NAS; +MELOXICAM15 MG PO; +OMEPRAZOLE40 MG PO; +OXYCODONE-ACET1 EACH PO; +PREDNISONE50 MG PO; +VISTARIL25 MG PO; +XANAX2 M1 PO; +XARELTO2.5 MG PO
[2023-08-27] MEDS ORDERED: IOHEXOL 300 MG/ML 100 ML VIAL IV ONE (16:05)
[2023-08-27 16:16] LABS: BASO # 0.1 10*3/uL (0.0-0.1); BASO % 0.5 % (0.0-1.0); EOS # 0.2 10*3/uL (0.0-0.4); EOS % 2.5 % (1.0-4.0); LYMPH # 2.4 10*3/uL (1.3-4.4); LYMPH % 25.8 % (27.0-41.0); MEAN CELL VOLUME 97.3 fl (81.0-99.0); MEAN CORPUSCULAR HGB 31.9 pg (27.0-31.0); MEAN CORPUSCULAR HGB CONC 32.8 g/dl (33.0-37.0); MEAN PLATELET VOLUME 8.6 fl (9.6-12.3); MONO # 0.8 10*3/uL (0.1-1.0); MONO % 8.9 % (3.0-9.0); NEUT # 5.8 10*3/uL (2.3-7.9); NEUT % 61.3 % (47.0-73.0); PLATELET COUNT AUTOMATED 280 10*3/uL (130-400); RED BLOOD COUNT 4.42 10*6/uL (4.10-5.10); RED CELL DISTRI WIDTH 13.8 % (0-14.5); WHITE BLOOD COUNT 9.5 10*3/uL (4.8-10.8)
[2023-08-27 16:18] LABS: BILIRUBIN Negative (Negative); BLOOD Negative (Negative); CLARITY Clear (Clear); COLOR Yellow (Yellow); GLUCOSE Negative (Negative); KETONE Negative (Negative); LEUKO ESTERASE Negative (Negative); NITRITE Negative (Negative); PH 5.5 (4.5-8.0); SPECIFIC GRAVITY <= 1.005 (1.001-1.030); UROBILINOGEN 0.2 E.U./dl (0.0-1.0)
[2023-08-27 16:36] LABS: ALKALINE PHOSPHATASE 89 U/L (46-116); CHLORIDE 97 mmol/L (98-107); LIPASE 86 U/L (12-53); SGPT/ALT 20 U/L (5-49); TOTAL PROTEIN 6.9 gm/dL (6.0-8.0)
[2023-08-27 16:38] LABS: BUN < 5 mg/dl (9-23)
[2023-08-27] MEDS ORDERED: IOHEXOL 300 MG/ML 100 ML VIAL ONE (16:49)
[2023-08-27] MEDS ORDERED: ONDANSETRON4 MG SL (17:59)
== END 2023-08-27 18:21 | disposition home or self-care (01) ==
LOC: ED 15:08
PROVIDERS: Nurse Practitioner
DX: K52.9 Noninfective gastroenteritis and colitis, unspecified (principal); K59.00 Constipation, unspecified; R11.2 Nausea with vomiting, unspecified; R35.0 Frequency of micturition; F17.200 Nicotine dependence, unspecified, uncomplicated; Z88.8 Allergy status to other drugs, medicaments and biological substances; Z88.6 Allergy status to analgesic agent; Z79.899 Other long term (current) drug therapy; Z79.82 Long term (current) use of aspirin; Z98.51 Tubal ligation status; Z98.890 Other specified postprocedural states

== ENCOUNTER 2023-12-01 14:09 | Inpatient (IN) | payer MEDICARE ==
[~2023-12-01] VITALS: Ht 167.6 cm; Wt 66.7 kg
[2023-12-01 14:21] VITALS: BP 116/88
[2023-12-01] MEDS ORDERED: SODIUM CHLORIDE 0.9% 1,000 ML IV ONE (14:35)
[2023-12-01] MEDS ORDERED: Ondansetron Hydrochloride 4 MG/2 ML VIAL IV ONE (14:35)
[2023-12-01 14:49] LABS: BASO % 0.3 % (0.0-1.0); EOS # 0.1 10*3/uL (0.0-0.4); EOS % 0.6 % (1.0-4.0); HEMATOCRIT 46.2 % (37.0-47.0); LYMPH # 1.8 10*3/uL (1.3-4.4); LYMPH % 20.5 % (27.0-41.0); MEAN CELL VOLUME 93.1 fl (81.0-99.0); MEAN CORPUSCULAR HGB 31.9 pg (27.0-31.0); MEAN CORPUSCULAR HGB CONC 34.2 g/dl (33.0-37.0); MEAN PLATELET VOLUME 8.5 fl (9.6-12.3); MONO # 1.1 10*3/uL (0.1-1.0); NEUT # 5.6 10*3/uL (2.3-7.9); NEUT % 65.3 % (47.0-73.0); PLATELET COUNT AUTOMATED 215 10*3/uL (130-400); RED BLOOD COUNT 4.96 10*6/uL (4.10-5.10); RED CELL DISTRI WIDTH 16.1 % (0-14.5); WHITE BLOOD COUNT 8.6 10*3/uL (4.8-10.8)
[2023-12-01] MEDS ORDERED: IOHEXOL 300 MG/ML 100 ML VIAL IV ONE (14:55)
[2023-12-01 15:00] LABS: ACT PARTIAL THROMBO TIME 28.5 SECONDS (20.0-32.1)
[2023-12-01 15:18] LABS: ALKALINE PHOSPHATASE 158 U/L (46-116); CHLORIDE 92 mmol/L (98-107); LIPASE 28 U/L (12-53); POTASSIUM 4.1 mmol/L (3.4-5.1); SGPT/ALT 34 U/L (5-49); TOTAL PROTEIN 6.9 gm/dL (6.0-8.0)
[2023-12-01 15:19] LABS: BILIRUBIN Negative (Negative); BLOOD Negative (Negative); CLARITY Clear (Clear); COLOR Dark Yellow (Yellow); GLUCOSE Negative (Negative); KETONE Negative (Negative); LEUKO ESTERASE Trace (Negative); NITRITE Positive (Negative); SPECIFIC GRAVITY <= 1.005 (1.001-1.030)
[2023-12-01 15:20] LABS: BUN < 5 mg/dl (9-23); ETHYL ALCOHOL < 3.0 mg/dl (<3)
[2023-12-01 15:22] LABS: BACTERIA 1+; EPITHELIAL CELLS 0-2; WBC 0-2 wbc/hpf (0-5); YEAST TRACE
[2023-12-01 15:29] LABS: URINE AMPHETAMINES Negative (1000ng/ml); URINE BARBITURATES Negative (200ng/ml); URINE BENZODIAZEPINES Negative (200ng/ml); URINE CANNABINOIDS (THC) Negative (50ng/ml); URINE COCAINE Negative (300ng/ml); URINE METHADONE Negative (300ng/ml); URINE OPIATES Negative (300ng/ml); URINE PHENCYCLIDINE Negative (25ng/ml)
[2023-12-01] MEDS ORDERED: Ketorolac Tromethamine 15 MG/ML VIAL IV ONE (16:15)
[2023-12-01] MEDS ORDERED: Ceftriaxone Sodium 1 GM/10 ML SYR IV ONE (17:40)
[2023-12-01 20:04] LABS: CHLORIDE 102 mmol/L (98-107); POTASSIUM 3.9 mmol/L (3.4-5.1)
[2023-12-01 20:05] LABS: BUN < 5 mg/dl (9-23)
[2023-12-01] MEDS ORDERED: Ondansetron Hydrochloride 4 MG/2 ML VIAL IV PRN (20:15)
[2023-12-01 20:17] VITALS: BP 124/84
[2023-12-01] MEDS ORDERED: Albuterol Sulf/Ipratropium 3 ML VIAL NEB SCH (20:30)
[2023-12-01 21:45] VITALS: BP 139/96
[2023-12-01] MEDS ORDERED: RIVAROXABAN 2.5 MG TABLET PO SCH (22:00)
[2023-12-01] MEDS ORDERED: OXYCODONE HCL (IR) 10 MG TABLET PO PRN (22:25)
[2023-12-01] MEDS ORDERED: ALPRAZolam 0.5 MG TAB PO PRN (22:30)
[2023-12-01] MEDS ORDERED: Nicotine 21 MG PATCH T SCH (22:45)
[2023-12-02] VITALS: BP 139/96
[2023-12-02] MEDS ORDERED: LAMOTRIGINE25 M1 PO (00:14)
[2023-12-02] MEDS ORDERED: CARAFATE1 GM/10 ML PO (00:18)
[2023-12-02] MEDS ORDERED: PROMETHAZINE HC25 M1 PO (00:18)
[2023-12-02] MEDS ORDERED: ZALEPLON10 MG PO (00:21)
[2023-12-02] MEDS ORDERED: REQUIP2 MG PO (00:23)
[2023-12-02] MEDS ORDERED: VITAMIN D325 MCG PO (00:25)
[2023-12-02] MEDS ORDERED: VITAMIN B150 MG PO (00:26)
[2023-12-02] MEDS ORDERED: BREO ELLIPTA 21 EACH INH (00:30)
[2023-12-02] MEDS ORDERED: Ondansetron4 MG PO (00:31)
[2023-12-02] MEDS ORDERED: hydrOXYzine pamoate 25 MG CAP PO PRN (01:40)
[2023-12-02] MEDS ORDERED: Promethazine Hydrochloride 25 MG TAB PO PRN (01:40)
[2023-12-02] MEDS ORDERED: BUDESONIDE 0.5 MG AMP NEB SCH (01:55)
[2023-12-02] MEDS ORDERED: ZOLPIDEM TARTRATE 10 MG TAB PO SCH ×2 (01:55→22:00)
[2023-12-02] MEDS ORDERED: Pantoprazole Sodium 40 MG TAB PO SCH (06:00)
[2023-12-02 06:12] LABS: BASO % 0.3 % (0.0-1.0); EOS # 0.1 10*3/uL (0.0-0.4); EOS % 1.2 % (1.0-4.0); HEMATOCRIT 43.4 % (37.0-47.0); LYMPH # 2.1 10*3/uL (1.3-4.4); LYMPH % 35.8 % (27.0-41.0); MEAN CELL VOLUME 95.4 fl (81.0-99.0); MEAN CORPUSCULAR HGB 32.1 pg (27.0-31.0); MEAN CORPUSCULAR HGB CONC 33.6 g/dl (33.0-37.0); MEAN PLATELET VOLUME 9.3 fl (9.6-12.3); MONO # 0.6 10*3/uL (0.1-1.0); MONO % 10.5 % (3.0-9.0); NEUT # 3.1 10*3/uL (2.3-7.9); NEUT % 51.9 % (47.0-73.0); PLATELET COUNT AUTOMATED 187 10*3/uL (130-400); RED BLOOD COUNT 4.55 10*6/uL (4.10-5.10); RED CELL DISTRI WIDTH 16.6 % (0-14.5); WHITE BLOOD COUNT 5.9 10*3/uL (4.8-10.8)
[2023-12-02 06:42] LABS: ALKALINE PHOSPHATASE 131 U/L (46-116); CHLORIDE 104 mmol/L (98-107); CHOLESTEROL 152 mg/dL (<200); LDL CHOLESTEROL 85 mg/dL (9-159); POTASSIUM 3.8 mmol/L (3.4-5.1); SGPT/ALT 26 U/L (5-49); TOTAL PROTEIN 6.1 gm/dL (6.0-8.0); TRIGLYCERIDES 68 mg/dl (<150)
[2023-12-02 06:52] LABS: BUN < 5 mg/dl (9-23)
[2023-12-02] MEDS ORDERED: SUCRALFATE 1 GM/10 ML UDC PO SCH (07:30)
[2023-12-02 08:00] VITALS: BP 99/60
[2023-12-02] MEDS ORDERED: Thiamine 100 MG TAB PO SCH (10:00)
[2023-12-02] MEDS ORDERED: Vitamin D 1,000 IU TAB (25 MCG) PO SCH (10:00)
[2023-12-02] MEDS ORDERED: ASPIRIN, CHEWABLE 81 MG TAB PO SCH (10:00)
[2023-12-02] MEDS ORDERED: CILOSTAZOL 50 MG TAB PO SCH (10:00)
[2023-12-02] MEDS ORDERED: LAMOTRIGINE 25 MG TAB PO SCH (10:00)
[2023-12-02] MEDS ORDERED: CILOSTAZOL 100 MG TAB PO SCH (10:00)
[2023-12-02] MEDS ORDERED: Nicotine 21 MG PATCH T SCH (10:00)
[2023-12-02] MEDS ORDERED: METOPROLOL SUCCINATE XR 25 MG TAB PO SCH (10:00)
[2023-12-02] MEDS ORDERED: DEXTROSE 5% 1,000 ML IV SCH (11:30)
[2023-12-02 11:40] LABS: CHLORIDE 105 mmol/L (98-107); POTASSIUM 3.5 mmol/L (3.4-5.1)
[2023-12-02 11:45] LABS: BUN < 5 mg/dl (9-23)
[2023-12-02 12:00] VITALS: BP 100/62
[2023-12-02 14:35] LABS: CHLORIDE 100 mmol/L (98-107); POTASSIUM 4.2 mmol/L (3.4-5.1)
[2023-12-02 14:44] LABS: BUN < 5 mg/dl (9-23)
[2023-12-02] MEDS ORDERED: OXYCODONE HCL (IR) 5 MG TAB PO PRN (15:05)
[2023-12-02 16:00] VITALS: BP 94/62
[2023-12-02] MEDS ORDERED: Ceftriaxone Sodium 1 GM in SYRINGE INFUSION 10 ML IV SCH (18:00)
[2023-12-02 20:00] VITALS: BP 104/48
[2023-12-02] MEDS ORDERED: LUMATEPERONE TOSYLATE 42 MG PO SCH (22:00)
[2023-12-02] MEDS ORDERED: Menthol/Zinc Oxide 4 GM THIN T PRN (23:15)
[2023-12-03] VITALS: BP 104/62
[2023-12-03 06:32] LABS: BASO % 0.5 % (0.0-1.0); EOS # 0.1 10*3/uL (0.0-0.4); EOS % 1.7 % (1.0-4.0); HEMATOCRIT 40.5 % (37.0-47.0); LYMPH # 2.7 10*3/uL (1.3-4.4); LYMPH % 40.8 % (27.0-41.0); MEAN CELL VOLUME 97.4 fl (81.0-99.0); MEAN CORPUSCULAR HGB 31.7 pg (27.0-31.0); MEAN CORPUSCULAR HGB CONC 32.6 g/dl (33.0-37.0); MEAN PLATELET VOLUME 9.3 fl (9.6-12.3); MONO # 0.7 10*3/uL (0.1-1.0); MONO % 10.2 % (3.0-9.0); NEUT # 3.1 10*3/uL (2.3-7.9); NEUT % 46.3 % (47.0-73.0); PLATELET COUNT AUTOMATED 170 10*3/uL (130-400); RED BLOOD COUNT 4.16 10*6/uL (4.10-5.10); RED CELL DISTRI WIDTH 16.5 % (0-14.5); WHITE BLOOD COUNT 6.7 10*3/uL (4.8-10.8)
[2023-12-03 06:59] LABS: CHLORIDE 105 mmol/L (98-107); POTASSIUM 3.7 mmol/L (3.4-5.1)
[2023-12-03 07:02] LABS: BUN < 5 mg/dl (9-23)
[2023-12-03 08:00] VITALS: BP 117/67
[2023-12-03] MEDS ORDERED: CAPLYTA42 MG PO (11:47)
[2023-12-03] MEDS ORDERED: LAMOTRIGINE25 M1 PO (11:47)
[2023-12-03] MEDS ORDERED: VISTARIL25 MG PO (11:47)
[2023-12-03] MEDS ORDERED: ZALEPLON10 MG PO (11:47)
[2023-12-03] MEDS ORDERED: REQUIP2 MG PO (11:47)
[2023-12-03] MEDS ORDERED: XANAX2 M1 PO (11:47)
[2023-12-03] MEDS ORDERED: OXYCODONE-ACET1 EACH PO (11:47)
[2023-12-03] MEDS ORDERED: Atrovent 0.03%30 ML NAS (11:48)
[2023-12-03] MEDS ORDERED: BREO ELLIPTA 21 EACH INH (11:48)
[2023-12-03] MEDS ORDERED: VITAMIN B150 MG PO (11:48)
[2023-12-03] MEDS ORDERED: CARAFATE1 GM/10 ML PO (11:48)
[2023-12-03] MEDS ORDERED: FLONASE ALLERG9.9 ML NAS (11:48)
[2023-12-03] MEDS ORDERED: Ondansetron4 MG PO (11:48)
[2023-12-03] MEDS ORDERED: AMMONIUM LACTA227 GM T (11:48)
[2023-12-03] MEDS ORDERED: VITAMIN D325 MCG PO (11:48)
[2023-12-03] MEDS ORDERED: OMEPRAZOLE40 MG PO (11:48)
[2023-12-03] MEDS ORDERED: OMNICEF300 MG PO (11:50)
== END 2023-12-03 13:18 | disposition home or self-care (01) | DRG 872 ==
LOC: ED 14:09 → 4E 18:03 → EDHOLD 18:03 → 4E 21:21
PROVIDERS: Internal Medicine; Student in an Organized Health Care Education/Training Program; ADMIT Internal Medicine; ATTEND Internal Medicine
DX: A41.9 Sepsis, unspecified organism (principal); N30.00 Acute cystitis without hematuria; E87.20 Acidosis, unspecified; E87.1 Hypo-osmolality and hyponatremia; F41.9 Anxiety disorder, unspecified; J44.9 Chronic obstructive pulmonary disease, unspecified; F32.A Depression, unspecified; K21.9 Gastro-esophageal reflux disease without esophagitis; R74.01 Elevation of levels of liver transaminase levels; F41.0 Panic disorder [episodic paroxysmal anxiety]; K76.0 Fatty (change of) liver, not elsewhere classified; K29.70 Gastritis, unspecified, without bleeding; Z88.6 Allergy status to analgesic agent; Z88.8 Allergy status to other drugs, medicaments and biological substances; Z98.51 Tubal ligation status; Z86.711 Personal history of pulmonary embolism; Z71.6 Tobacco abuse counseling

== ENCOUNTER → 2024-01-16 | Outpatient (CLI) | payer MEDICARE ==
[~2024-01-16] MED LIST changes: +BREO ELLIPTA 21 EACH INH; +CARAFATE1 GM/10 ML PO; +LAMOTRIGINE25 M1 PO; +OMNICEF300 MG PO; +Ondansetron4 MG PO; +PROMETHAZINE HC25 M1 PO; +REQUIP2 MG PO; +VITAMIN B150 MG PO; +VITAMIN D325 MCG PO; +ZALEPLON10 MG PO
== END | disposition home or self-care (01) ==
LOC: US 01:57
PROVIDERS: ATTEND Internal Medicine
DX: I73.9 Peripheral vascular disease, unspecified (principal); I10 Essential (primary) hypertension

== ENCOUNTER 2024-05-06 05:36 | Emergency (ER) | payer MEDICARE ==
[~2024-05-06] VITALS: Ht 167.6 cm; Wt 59.9 kg
[2024-05-06 06:07] LABS: HEMATOCRIT 47.5 % (37.0-47.0); MEAN CELL VOLUME 98.3 fl (81.0-99.0); MEAN CORPUSCULAR HGB 32.7 pg (27.0-31.0); MEAN CORPUSCULAR HGB CONC 33.3 g/dl (33.0-37.0); MEAN PLATELET VOLUME 8.8 fl (9.6-12.3); PLATELET COUNT AUTOMATED 190 10*3/uL (130-400); RED BLOOD COUNT 4.83 10*6/uL (4.10-5.10); RED CELL DISTRI WIDTH 14.4 % (0-14.5); WHITE BLOOD COUNT 9.1 10*3/uL (4.8-10.8)
[2024-05-06 06:24] LABS: MANUAL DIFF REFLEX YES
[2024-05-06 06:39] LABS: BUN 6 mg/dl (9-23); CHLORIDE 99 mmol/L (98-107); POTASSIUM 3.6 mmol/L (3.4-5.1)
[2024-05-06 06:58] LABS: ETHYL ALCOHOL 247.2 mg/dl (<3)
[2024-05-06 06:59] LABS: ATYPICAL LYMPHS 1 % (0-0); BASOPHILS 1 % (0-1); TOTAL CELLS COUNTED 100 #CELLS
[2024-05-06 07:00] LABS: BURR CELLS FEW; PLATELET SUFFICIENCY NORMAL (NORMAL); POLYCHROMASIA SLIGHT
== END 2024-05-06 07:49 | disposition home or self-care (01) ==
LOC: ED 05:36
PROVIDERS: Internal Medicine
DX: J40 Bronchitis, not specified as acute or chronic (principal); Z20.822 Contact with and (suspected) exposure to COVID-19; F10.129 Alcohol abuse with intoxication, unspecified; I10 Essential (primary) hypertension; F41.9 Anxiety disorder, unspecified; H92.09 Otalgia, unspecified ear; F17.200 Nicotine dependence, unspecified, uncomplicated; Z88.8 Allergy status to other drugs, medicaments and biological substances; Z88.6 Allergy status to analgesic agent; Z79.899 Other long term (current) drug therapy; Z79.82 Long term (current) use of aspirin; Z98.890 Other specified postprocedural states; Y90.8 Blood alcohol level of 240 mg/100 ml or more

== ENCOUNTER 2024-06-16 11:51 | Observation (INO) | payer MEDICARE ==
[~2024-06-16] VITALS: Ht 170.1 cm; Wt 63.5 kg
[2024-06-16 12:36] VITALS: BP 112/71
[2024-06-16] MEDS ORDERED: IOHEXOL 300 MG/ML 100 ML VIAL IV ONE (12:45)
[2024-06-16] MEDS ORDERED: IOHEXOL 300 MG/ML 100 ML VIAL ONE (13:00)
[2024-06-16 14:02] LABS: HEMATOCRIT 38.4 % (37.0-47.0); MANUAL DIFF REFLEX YES; MEAN CELL VOLUME 102.4 fl (81.0-99.0); MEAN CORPUSCULAR HGB 35.5 pg (27.0-31.0); MEAN CORPUSCULAR HGB CONC 34.6 g/dl (33.0-37.0); MEAN PLATELET VOLUME 10.3 fl (9.6-12.3); PLATELET COUNT AUTOMATED 86 10*3/uL (130-400); RED BLOOD COUNT 3.75 10*6/uL (4.10-5.10); RED CELL DISTRI WIDTH 17.4 % (0-14.5); WHITE BLOOD COUNT 13.6 10*3/uL (4.8-10.8)
[2024-06-16 14:07] LABS: ACT PARTIAL THROMBO TIME 33.3 SECONDS (20.0-32.1)
[2024-06-16 14:09] LABS: URINE AMPHETAMINES Negative (1000ng/ml); URINE BARBITURATES Negative (200ng/ml); URINE BENZODIAZEPINES Positive (200ng/ml); URINE CANNABINOIDS (THC) Negative (50ng/ml); URINE COCAINE Negative (300ng/ml); URINE METHADONE Negative (300ng/ml); URINE OPIATES Positive (300ng/ml); URINE PHENCYCLIDINE Negative (25ng/ml)
[2024-06-16 14:21] LABS: BILIRUBIN 3+ (Negative); BLOOD Trace-Lysed (Negative); CLARITY Turbid (Clear); COLOR Dark Yellow (Yellow); GLUCOSE Negative (Negative); KETONE Negative (Negative); LEUKO ESTERASE 3+ (Negative); NITRITE Positive (Negative); SPECIFIC GRAVITY 1.015 (1.001-1.030)
[2024-06-16] MEDS ORDERED: SODIUM CHLORIDE 0.9% 1,000 ML IV SCH (14:25)
[2024-06-16 14:27] LABS: PLATELET SUFFICIENCY LOW (NORMAL); TOTAL CELLS COUNTED 100 #CELLS
[2024-06-16 14:28] LABS: ALKALINE PHOSPHATASE 312 U/L (46-116); BURR CELLS FEW; CHLORIDE 83 mmol/L (98-107); LIPASE 31 U/L (12-53); POTASSIUM 3.5 mmol/L (3.4-5.1); ROULEAUX SLIGHT; SGPT/ALT 120 U/L (5-49); TARGET CELLS FEW
[2024-06-16 14:29] LABS: SPHEROCYTES FEW
[2024-06-16 14:34] LABS: BUN < 5 mg/dl (9-23)
[2024-06-16 14:35] LABS: ETHYL ALCOHOL < 3.0 mg/dl (<3)
[2024-06-16] MEDS ORDERED: Piperacillin Sodium/Tazobact 50 ML IV ONE (14:40)
[2024-06-16 14:50] LABS: BACTERIA 4+; EPITHELIAL CELLS 16-20; WBC 41-50 wbc/hpf (0-5)
[2024-06-16 17:00] VITALS: BP 110/70
[2024-06-16 20:44] VITALS: BP 108/68
[2024-06-16] MEDS ORDERED: SODIUM CHLORIDE 0.9% 1,000 ML IV ONE (21:21)
[2024-06-16 21:39] VITALS: BP 95/61
[2024-06-17] MEDS ORDERED: Ondansetron Hydrochloride 4 MG/2 ML VIAL IV PRN (00:35)
[2024-06-17 00:55] LABS: CHLORIDE 94 mmol/L (98-107); POTASSIUM 3.5 mmol/L (3.4-5.1)
[2024-06-17] MEDS ORDERED: LAMOTRIGINE100 MG PO (01:01)
[2024-06-17] MEDS ORDERED: CAPLYTA21 M1 PO (01:02)
[2024-06-17] MEDS ORDERED: ALPRAZOLAM0.5 M3 PO (01:03)
[2024-06-17 01:07] LABS: BUN < 5 mg/dl (9-23)
[2024-06-17] MEDS ORDERED: PANTOPRAZOLE SO40 MG PO (01:07)
[2024-06-17] MEDS ORDERED: LOPERAMIDE HCL2 MG PO (01:10)
[2024-06-17] MEDS ORDERED: ONDANSETRON HYDR4 MG PO (01:11)
[2024-06-17] MEDS ORDERED: CETIRIZINE HYDR10 MG PO (01:11)
[2024-06-17] MEDS ORDERED: METOPROLOL SUCC25 M2 PO (01:12)
[2024-06-17] MEDS ORDERED: MONTELUKAST SOD10 MG PO (01:12)
[2024-06-17 02:19] LABS: CHLORIDE 94 mmol/L (98-107); POTASSIUM 3.5 mmol/L (3.4-5.1)
[2024-06-17 02:20] LABS: BUN < 5 mg/dl (9-23)
[2024-06-17 04:05] VITALS: BP 101/65
[2024-06-17 06:26] LABS: HEMATOCRIT 36.6 % (37.0-47.0); MEAN CELL VOLUME 101.7 fl (81.0-99.0); MEAN CORPUSCULAR HGB CONC 34.4 g/dl (33.0-37.0); MEAN PLATELET VOLUME 10.7 fl (9.6-12.3); PLATELET COUNT AUTOMATED 94 10*3/uL (130-400); RED CELL DISTRI WIDTH 17.7 % (0-14.5); WHITE BLOOD COUNT 11.2 10*3/uL (4.8-10.8)
[2024-06-17 06:35] LABS: ALKALINE PHOSPHATASE 283 U/L (46-116); CHLORIDE 96 mmol/L (98-107); POTASSIUM 3.5 mmol/L (3.4-5.1); SGPT/ALT 101 U/L (5-49); TOTAL PROTEIN 5.6 gm/dL (6.0-8.0)
[2024-06-17 06:40] LABS: MANUAL DIFF REFLEX YES
[2024-06-17 06:55] LABS: BUN < 5 mg/dl (9-23)
[2024-06-17] MEDS ORDERED: SUCRALFATE 1 GM TAB PO SCH (07:30)
[2024-06-17] MEDS ORDERED: Pantoprazole Sodium 40 MG TAB PO SCH (07:30)
[2024-06-17 07:43] LABS: ATYPICAL LYMPHS 1 % (0-0); TOTAL CELLS COUNTED 100 #CELLS
[2024-06-17 07:44] LABS: PLATELET SUFFICIENCY LOW (NORMAL)
[2024-06-17 07:59] VITALS: BP 94/56
[2024-06-17 08:07] LABS: HBsAG SCREEN Negative (Negative); HCV Ab Non Reactive (Non Reactive); HEP B CORE Ab, IgM Negative (Negative)
[2024-06-17] MEDS ORDERED: ACETYLCYSTEINE 800 MG/4 ML VIAL NEB SCH (08:50)
[2024-06-17] MEDS ORDERED: LEVOFLOXACIN 750 MG TAB PO SCH (10:00)
[2024-06-17] MEDS ORDERED: Piperacillin Sodium/Tazobact 0 ML IV SCH (10:00)
[2024-06-17] MEDS ORDERED: Nicotine 21 MG PATCH T SCH (10:00)
[2024-06-17] MEDS ORDERED: CAPLYTA PO SCH (22:00)
== END 2024-06-17 10:45 | disposition short-term general hospital (02) ==
LOC: ED 11:51 → EDHOLD 15:45 → ED 15:45 → EDHOLD 23:46
PROVIDERS: Internal Medicine; ADMIT Family Medicine; ATTEND Family Medicine
DX: A41.9 Sepsis, unspecified organism (principal); R65.20 Severe sepsis without septic shock; K72.00 Acute and subacute hepatic failure without coma; K76.0 Fatty (change of) liver, not elsewhere classified; K21.9 Gastro-esophageal reflux disease without esophagitis; N39.0 Urinary tract infection, site not specified; R31.9 Hematuria, unspecified; R74.01 Elevation of levels of liver transaminase levels; E87.20 Acidosis, unspecified; R17 Unspecified jaundice; E87.1 Hypo-osmolality and hyponatremia; J44.9 Chronic obstructive pulmonary disease, unspecified; F32.9 Major depressive disorder, single episode, unspecified; F41.9 Anxiety disorder, unspecified; E43 Unspecified severe protein-calorie malnutrition; R79.1 Abnormal coagulation profile; G89.29 Other chronic pain; F17.210 Nicotine dependence, cigarettes, uncomplicated; Z79.899 Other long term (current) drug therapy

== ENCOUNTER → 2024-08-04 | Outpatient (CLI) | payer MEDICARE ==
[~2024-08-04] MED LIST changes: +ALPRAZOLAM0.5 M3 PO; +CAPLYTA21 M1 PO; +CETIRIZINE HYDR10 MG PO; +LAMOTRIGINE100 MG PO; +LOPERAMIDE HCL2 MG PO; +METOPROLOL SUCC25 M2 PO; +MONTELUKAST SOD10 MG PO; +ONDANSETRON HYDR4 MG PO; +PANTOPRAZOLE SO40 MG PO
== END | disposition home or self-care (01) ==
LOC: US 09:26
PROVIDERS: ATTEND Internal Medicine
DX: K76.0 Fatty (change of) liver, not elsewhere classified (principal); K72.90 Hepatic failure, unspecified without coma; R10.12 Left upper quadrant pain; R10.11 Right upper quadrant pain

== ENCOUNTER → 2024-09-03 | Outpatient (CLI) | payer MEDICARE ==
[2024-09-03 09:30] LABS: BASO % 0.5 % (0.0-1.0); EOS # 0.3 10*3/uL (0.0-0.4); EOS % 3.8 % (1.0-4.0); HEMATOCRIT 37.6 % (37.0-47.0); MEAN CELL VOLUME 90.4 fl (81.0-99.0); MEAN CORPUSCULAR HGB 29.6 pg (27.0-31.0); MEAN CORPUSCULAR HGB CONC 32.7 g/dl (33.0-37.0); MEAN PLATELET VOLUME 9.9 fl (9.6-12.3); MONO # 0.7 10*3/uL (0.1-1.0); MONO % 10.2 % (3.0-9.0); NEUT # 3.1 10*3/uL (2.3-7.9); NEUT % 47.1 % (47.0-73.0); PLATELET COUNT AUTOMATED 246 10*3/uL (130-400); RED BLOOD COUNT 4.16 10*6/uL (4.10-5.10); WHITE BLOOD COUNT 6.6 10*3/uL (4.8-10.8)
[2024-09-03 10:05] LABS: ALKALINE PHOSPHATASE 107 U/L (46-116); CHLORIDE 101 mmol/L (98-107); CHOLESTEROL 205 mg/dL (<200); LDL CHOLESTEROL 137 mg/dL (9-159); POTASSIUM 3.4 mmol/L (3.4-5.1); SGPT/ALT 21 U/L (5-49); TOTAL PROTEIN 7.2 gm/dL (6.0-8.0)
[2024-09-03 10:06] LABS: BUN < 5 mg/dl (9-23)
== END | disposition home or self-care (01) ==
LOC: LAB 01:56
PROVIDERS: ATTEND Internal Medicine
DX: M48.02 Spinal stenosis, cervical region (principal); M43.16 Spondylolisthesis, lumbar region; I70.0 Atherosclerosis of aorta; K72.90 Hepatic failure, unspecified without coma

== ENCOUNTER → 2025-02-18 | Outpatient (CLI) | payer MEDICARE ==
[2025-02-18 08:51] LABS: BASO # 0.0 10*3/uL (0.0-0.1); BASO % 0.5 % (0.0-1.0); EOS # 0.0 10*3/uL (0.0-0.4); EOS % 0.9 % (1.0-4.0); MEAN CELL VOLUME 95.0 fl (81.0-99.0); MEAN CORPUSCULAR HGB 30.8 pg (27.0-31.0); MEAN PLATELET VOLUME 9.7 fl (9.6-12.3); MONO # 0.4 10*3/uL (0.1-1.0); MONO % 9.7 % (3.0-9.0); NEUT # 2.1 10*3/uL (2.3-7.9); NEUT % 47.6 % (47.0-73.0); NUCLEATED RED BLOOD CELL 0.0 % (0.0-0.0); NUCLEATED RED BLOOD CELL 0.0 10*3/uL (0.0-0.0); PLATELET COUNT AUTOMATED 176 10*3/uL (130-400); RED CELL DISTRI WIDTH 13.2 % (0-14.5)
[2025-02-18 09:45] LABS: FREE T4 1.17 ng/dl (0.89-1.76); SGPT/ALT 46 U/L (5-49)
[2025-02-18 09:48] LABS: BUN < 5 mg/dl (9-23)
[2025-02-19 08:07] LABS: ALPHA-1-ANTITRYPSIN, SERUM 152 mg/dL (101-187)
[2025-02-19 16:08] LABS: ANTI-SMOOTH MUSCLE ANTIBODY 7 Units (0-19)
[2025-02-19 20:07] LABS: HEPATITIS C QNT HCV Not Detected IU/mL (.)
[2025-02-21 16:07] LABS: IGG SUBCLASS 1 687 mg/dL (248-810); IGG SUBCLASS 2 458 mg/dL (130-555); IGG SUBCLASS 3 44 mg/dL (15-102)
[2025-02-23 02:06] LABS: CHENODEOXYCHOLIC ACIDS 26 umol/L (.); CHOLIC ACIDS 6.2 umol/L (.); DEOXYCHOLIC ACIDS <0.10 umol/L (.); URSODEOXYCHOLIC ACIDS 7.6 umol/L (.)
== END | disposition home or self-care (01) ==
LOC: LAB 08:16
PROVIDERS: ATTEND Nurse Practitioner
DX: R79.89 Other specified abnormal findings of blood chemistry (principal); E80.6 Other disorders of bilirubin metabolism; Z79.899 Other long term (current) drug therapy; Z98.890 Other specified postprocedural states

== ENCOUNTER 2025-03-06 08:09 | Emergency (ER) | payer MEDICARE ==
[~2025-03-06] VITALS: Ht 167.6 cm; Wt 77.1 kg
[2025-03-06] MEDS ORDERED: SODIUM CHLORIDE 0.9% 1,000 ML IV ONE (08:55)
[2025-03-06] MEDS ORDERED: Ondansetron Hydrochloride 4 MG/2 ML VIAL IV ONE (08:55)
[2025-03-06 09:08] LABS: BASO # 0.0 10*3/uL (0.0-0.1); BASO % 0.6 % (0.0-1.0); EOS # 0.1 10*3/uL (0.0-0.4); EOS % 1.7 % (1.0-4.0); MEAN CELL VOLUME 93.5 fl (81.0-99.0); MEAN CORPUSCULAR HGB 29.8 pg (27.0-31.0); MEAN PLATELET VOLUME 9.3 fl (9.6-12.3); MONO # 0.6 10*3/uL (0.1-1.0); MONO % 12.3 % (3.0-9.0); NEUT # 2.6 10*3/uL (2.3-7.9); NEUT % 53.2 % (47.0-73.0); NUCLEATED RED BLOOD CELL 0.0 % (0.0-0.0); NUCLEATED RED BLOOD CELL 0.0 10*3/uL (0.0-0.0); PLATELET COUNT AUTOMATED 170 10*3/uL (130-400); RED CELL DISTRI WIDTH 13.7 % (0-14.5)
[2025-03-06 09:29] LABS: BUN < 5 mg/dl (9-23)
[2025-03-06 10:11] LABS: BILIRUBIN Negative (Negative); BLOOD Negative (Negative); CLARITY Clear (Clear); COLOR Dark Yellow (Yellow); KETONE Negative (Negative); LEUKO ESTERASE Negative (Negative); NITRITE Positive (Negative); PH 5.5 (4.5-8.0); SPECIFIC GRAVITY <= 1.005 (1.001-1.030); UROBILINOGEN 1.0 E.U./dl (0.0-1.0)
[2025-03-06 10:20] LABS: BACTERIA TRACE; WBC 0-2 wbc/hpf (0-5); YEAST TRACE
[2025-03-06] MEDS ORDERED: Ondansetron4 MG PO (10:26)
== END 2025-03-06 11:20 | disposition home or self-care (01) ==
LOC: ED 08:09
PROVIDERS: Emergency Medicine
DX: N39.0 Urinary tract infection, site not specified (principal); J06.9 Acute upper respiratory infection, unspecified; B97.89 Other viral agents as the cause of diseases classified elsewhere; F17.200 Nicotine dependence, unspecified, uncomplicated; Z79.899 Other long term (current) drug therapy; Z88.5 Allergy status to narcotic agent; Z88.8 Allergy status to other drugs, medicaments and biological substances; Z98.51 Tubal ligation status; Z98.890 Other specified postprocedural states